=== PATIENT | male | born 1990 | race Caucasian/White ===

== ENCOUNTER 2017-05-27 18:38 | Emergency (ER) | payer SELFPAY ==
--- NOTE | 2017-05-27 23:24 | PDOC ---
Gen Adult / Medical Screen HPI - General Chief Complaint: Clear for Confinement/DUI Draw Stated Complaint: CLEAR FOR CONFINEMENT Date Seen by Provider: 05/27/17 Time Seen by Provider: 18:40 Source: POSITIVE: Patient, Police Exam Limitations: POSITIVE: No limitations Nurse's Notes Reviewed & Considered: Yes - History of Present Illness Initial Comments: The patient is a 26-year-old male who is brought to the emergency department by law enforcement for medical clearance. [place] On arrival to the emergency department the patient denies any medical concerns. He reports a history of previous injuries. He denies drinking and denies any current use of any prescription drugs. He refused to blow in the breathalyzer and subsequently was brought here for medical clearance. Patient is awake and answers questions appropriately. He has no medical concerns or complaints currently. - Patient Home Medications Home Medications: Home Medications NK [No Home Medications Reported] 05/27/17 Past Medical History Past Medical History Reviewed: Other (please comment) (Written nursing documentation reviewed) ROS - Limitations ROS Limitations: No Limitations Gen Adult/Medical Screen Exam - General Appearance General Appearance: POSITIVE: Alert, Cooperative, No Acute Distress - HEENT HEENT: POSITIVE: Head Inspection Nml - Neck Neck: POSITIVE: Normal Inspection - Respiratory Respiratory: POSITIVE: No Respiratory Distress, Breath Sounds Normal - Cardiovascular Cardiovascular: POSITIVE: Regular Rate & Rhythm, No Murmur Peripheral Pulses: Dorsalis-pedis (R): 2+, Dorsalis-pedis (L): 2+ - Abdomen Abdomen: Soft: (All Quadrants), Denies Tenderness: (All Quadrants), No Distention: (All Quadrants) Gen Adlt/Medical Scrn Progress - Patient's Progress MDM / ED Course: The patient is brought to the emergency department by law enforcement for medical clearance for skilled nursing as he refused to blow into the breathalyzer. He has no medical concerns and vital signs are stable. He is considered medically stable for discharge to the skilled nursing. He will return to the emergency room if any worsening or change in symptoms. - Consult Counseled: POSITIVE: Patient, RE: DX, RE: Need for F/U Patient Care Time - Estimated PCT Patient Care Time (In Minutes): 10 Vital Signs - VS Reviewed Vital Signs Reviewed: Yes Discharge Clinical Impression: Medical clearance for incarceration Discharge Disposition: Discharged to Custody of Law Enforcement Condition: Stable Additional Instructions: There appears to be no active medical issue at this time. Your medically stable to be transferred to the skilled nursing. Return to the emergency room if any worsening or change in symptoms. Follow Up With: NONE,NONE [Primary Care Provider] - Date Decision to Transfer to Another Facility: 05/27/17 Time Decision to Transfer to Another Facility: 19:00
[2017-05-28 00:09] VITALS: RESP 18; TEMP 98.2
== END 2017-05-27 18:46 | disposition home or self-care (01) ==
LOC: ER 18:38
DX: Z04.8 Encounter for examination and observation for other specified reasons (principal)
CPT/HCPCS: 99282